=== PATIENT | male | born 1990 | race Caucasian/White ===

== ENCOUNTER 2021-02-04 21:40 | Emergency (ER) | payer OTHER ==
[~2021-02-04] VITALS: Ht 190.5 cm; Wt 94.9 kg
[2021-02-05] MEDS ORDERED: KETOROLAC 60MG 2ML VIAL IM ONE (00:20)
[2021-02-05 00:31] VITALS: BP 128/64
== END 2021-02-05 00:34 | disposition home or self-care (01) ==
LOC: M ED 21:40
DX: K11.20 Sialoadenitis, unspecified (principal)
CPT/HCPCS: 36415; 70360; 85025; 96372; 99283; J1885

== ENCOUNTER → 2021-02-04 | Outpatient (CLI) | payer OTHER ==
[2021-02-04 12:11] LABS: BASO # 0.1 10^3/uL (0.0-0.2); BASO % 0.9 % (0.0-1.0); EOS # 0.8 10^3/uL (0.0-0.5); EOS % 8.8 % (0.0-3.0); HEMOGLOBIN 15.4 g/dl (13.5-17.5); LYMPH # 1.3 10^3/uL (1.5-5.0); LYMPH % 15.3 % (24.0-44.0); MEAN CORPUSCULAR HEMOGLOBIN 31.6 pg (27.0-33.0); MEAN CORPUSCULAR HGB CONC 33.5 g/dl (32.0-36.5); MEAN CORPUSCULAR VOLUME 94.5 fl (80.0-96.0); MONO # 0.9 10^3/uL (0.0-0.8); MONO % 10.3 % (2.0-8.0); NEUTROPHILS # 5.5 10^3/uL (1.5-8.5); NEUTROPHILS % 64.3 % (36.0-66.0); PLATELET COUNT, AUTOMATED 201 10^3/uL (150-450); RED BLOOD COUNT 4.87 10^6/uL (4.30-6.10); WHITE BLOOD COUNT 8.5 10^3/uL (4.0-10.0)
--- NOTE | 2021-02-04 19:12 | REP ---
INDICATION: LOCALIZED SWELLING, MASS AND LUMP, NECK. COMPARISON: None. TECHNIQUE: Three views FINDINGS: Normal cervical lordosis maintained. There is mild cervical spondylosis at C5-6 with anterior osteophytes and some calcifications anterior longitudinal ligament. Over the disc space and vertebral body heights are maintained throughout and there are no significant posterior osteophytes evident. C1-2 relationships are normal. No prevertebral swelling. AP view shows no torticollis. IMPRESSION: 1. Mild cervical spondylosis at C5-6 without disc space narrowing, compression deformity, prevertebral swelling, malalignment or other acute finding. <Electronically signed by Harsh Willett > 02/04/21 [id number]
== END ==
LOC: M LAB 11:47
PROVIDERS: ATTEND Physician Assistant
DX: M47.812 Spondylosis without myelopathy or radiculopathy, cervical region (principal); R22.1 Localized swelling, mass and lump, neck

== ENCOUNTER → 2021-03-24 | Outpatient (CLI) | payer OTHER ==
[~2021-03-24] MED LIST: E-Z-GAS II EFFERVESCENT PACKET (SODIUM BICARB./CITRIC ACID/SIMETHICONE) As Ordered ONE; E-Z-HD 98% w/w 340GM SUSP BTL As Ordered ONE; E-Z-PAQUE 96% w/w SUSP 176GM BTL As Ordered ONE
--- NOTE | 2021-03-24 17:04 | REP ---
INDICATION: DYSPHAGIA, GERD. COMPARISON: None TECHNIQUE: This procedure was performed by Inez Cha [facility] [place], under the direct supervision of Dr. Lynn. Images were reviewed with Dr. Lynn prior to dictation. Liquid barium and gas producing crystals were given in the erect position, as well as liquid barium in the prone oblique position in order to perform a double contrast esophagram examination. FINDINGS: A single view PA chest x-ray is submitted as a paedodontist film. The superior mediastinal structures are midline. The heart size is within normal limits. The lungs are clear. The oral and pharyngeal stages of deglutition were unremarkable. Esophageal transport is prompt and efficient and there is no evidence of esophagitis, stricture, or mucosal ring. There is no evidence of a hiatal hernia. No gastroesophageal reflux was visualized during the exam. IMPRESSION: Unremarkable esophagram. 0.2 minutes of fluoroscopy time was utilized for this procedure. Some fluoroscopic images are performed with last image hold technology. These images require no additional radiation. <Electronically signed by Inez Cha > 03/24/21 1400 <Electronically signed by Steve Lynn > 03/24/21 1700
== END ==
LOC: M RAD 08:32
PROVIDERS: ATTEND Physician Assistant
DX: R13.10 Dysphagia, unspecified (principal)

== ENCOUNTER 2022-06-06 11:45 | Day surgery (SDC) | payer OTHER ==
[~2022-06-06] VITALS: Ht 190.5 cm; Wt 96.2 kg
[~2022-06-06 11:45] MED LIST changes: -E-Z-GAS II EFFERVESCENT PACKET (SODIUM BICARB./CITRIC ACID/SIMETHICONE) As Ordered ONE; -E-Z-HD 98% w/w 340GM SUSP BTL As Ordered ONE; -E-Z-PAQUE 96% w/w SUSP 176GM BTL As Ordered ONE; +NS 1,000 ML IV ONE
[2022-06-06] MEDS ORDERED: LIDOCAINE 2% 100MG/5ML SDV (FOR ANES.) As Ordered ONE (13:53)
[2022-06-06] MEDS ORDERED: fentaNYL 100 MCG/2 ML INJECTION As Ordered ONE (13:53)
[2022-06-06] MEDS ORDERED: propofoL 200 MG/20 ML VIAL As Ordered ONE ×3 (13:53→14:27)
[2022-06-06 15:05] VITALS: BP 134/92
== END 2022-06-06 15:00 | disposition home or self-care (01) ==
LOC: M OPP 11:45
PROVIDERS: ATTEND Internal Medicine Gastroenterology
DX: K20.0 Eosinophilic esophagitis (principal); G47.30 Sleep apnea, unspecified; Z99.89 Dependence on other enabling machines and devices
CPT/HCPCS: 43239; 43249; 88305; J3010

== ENCOUNTER 2024-03-16 12:33 | Day surgery (SDC) | payer OTHER ==
[~2024-03-16] VITALS: Ht 190.5 cm; Wt 97.4 kg
[~2024-03-16 12:33] MED LIST changes: -NS 1,000 ML IV ONE; +OMEP40CA5 PO
[2024-03-16] MEDS: NS 1,000 ML IV ONE (13:02)
[2024-03-16] MEDS ORDERED: propofoL 200 MG/20 ML VIAL As Ordered ONE (13:22)
[2024-03-16 13:46] VITALS: TEMP 97.5
[2024-03-16 14:05] VITALS: BP 122/79; O2SAT 96
== END 2024-03-16 14:13 | disposition home or self-care (01) ==
LOC: M OPP 12:33
PROVIDERS: ATTEND Internal Medicine Gastroenterology
DX: K20.0 Eosinophilic esophagitis (principal); R13.10 Dysphagia, unspecified; G47.30 Sleep apnea, unspecified; Z99.89 Dependence on other enabling machines and devices; Z79.899 Other long term (current) drug therapy